=== PATIENT | female | born 1990 | race Caucasian/White ===

== ENCOUNTER 2018-09-07 13:25 | Outpatient (CLI) | payer OTHER ==
[~2018-09-07] VITALS: Ht 157.5 cm; Wt 73.0 kg
[2018-09-07 13:32] VITALS: Ht 157.5 cm; Wt 73.0 kg
[2018-09-07 13:33] VITALS: BP 101/57; PULSE 60; RESP 20
[2018-09-07] MEDS ORDERED: PREN1TAB13 PO (13:36)
--- NOTE | 2018-09-07 15:03 | PN ---
Triage Information Date/Time Reason for visit: DFM Weeks of Gestation 39+ /Para 3/2 Diabetes: none Hypertention: none Objective Vital Signs Date Temp Pulse Resp B/P (MAP) Pulse Ox O2 O2 Flow FiO2 Time Delivery Rate 09/07/18 97.6 60 20 101/57 Room Air 13:33 (72) Heart Rate: 140's Contractions: >10 Minutes Apart Disposition: Discharge Assessment/Plan BPP 10/10 Feels the baby moves Delivery is offered .She would like to deliver in [facility] in 2 days Questions answered Precautions discussed Follow up with provider EMILY BALIR M.D. Sep 07, 2018 15:03
--- NOTE | 2018-09-07 15:27 | TRIAGE ---
OB Triage Datetime Report Generated by CPN: 09/07/2018 15:27 Datetime: 09/07/2018 13:40 Time of Arrival: 09/07/2018 13:15 EGA: 39.2 Arrived By: Ambulatory Arrived From: Home Chief Complaint: HERE WITH C/O DECREASED MOVEMENT Movement: Decreased Contractions: Denies/Absent Rupture of Membranes: Denies Vaginal Bleeding: None Vaginal Discharge: Denies Recent Sexual Intercouse: Denies Abdominal Trauma: Not Applicable Patient Complaints: Other Provider Notified: DR ALLEN Initial Plan: EFM,ALL DR ALLEN BPP/NST Datetime: 09/07/2018 13:39 Maternal Assessment Level of Consciousness: Fully Conscious DTR's/Clonus: DTRs 2+; No Clonus Headache: Denies Blurred Vision: No Respiratory Effort: Unlabored; Regular Rhythm; Equal Expansion Breath Sounds, Left: Clear and Equal Breath Sounds, Right: Clear and Equal Nausea/Vomiting: Denies RUQ Epigastric Pain: Denies Facial Edema: None Temperature Route: Axillary Fall Risk Assessment History of Falling: (0) No Secondary Diagnosis: (0) No Ambulatory Aid: (0) Bedrest/Nurse Assist IV Therapy: (0) No Gait: (0) Normal/Bedrest/Immobile Mental Status: (0) Oriented to Own Ability Fall Score: 0 Fall Risk Score Definition: No Risk: No action required Datetime: 09/07/2018 13:36 Maternal Assessment Level of Consciousness: Fully Conscious DTR's/Clonus: DTRs 2+ Headache: Denies Blurred Vision: No Nausea/Vomiting: Denies RUQ Epigastric Pain: Denies Facial Edema: None Labor Evaluation Frequency: NONE Monitor Mode: External Pattern: Normal: <= 5 Contractions in 10 Minutes Resting Tone [place]: Relaxed Heart Rate FHR Baseline Rate: 140 Monitor Mode: External US FHR Baseline Changes: No Baseline Change Variability: Moderate 6-25 bpm Accelerations: 15X15 Decelerations: None Category: Category I Pain Assessment Pain Scale: 0 Pain Presence: None/Denies Pain Goal: 3 Vaginal Exam Membrane Status: Intact
== END 2018-09-07 15:05 | disposition home or self-care (01) ==
LOC: OBT 13:25 → L-D 13:26 → OBT 15:05
PROVIDERS: ATTEND Obstetrics & Gynecology
DX: O36.8130 Decreased fetal movements, third trimester, not applicable or unspecified (principal); Z3A.39 39 weeks gestation of pregnancy
CPT/HCPCS: 76818; G0463